=== PATIENT | female | born 1960 | race Caucasian/White ===

== ENCOUNTER → 2021-03-22 | Outpatient (CLI) | payer BC | LOC: MC.RAD 13:48 | DX: N60.12 Diffuse cystic mastopathy of left breast (principal) ==

== ENCOUNTER → 2021-04-02 | Outpatient (CLI) | payer BC | LOC: MC.RAD 09:47 | DX: N60.02 Solitary cyst of left breast (principal) ==

== ENCOUNTER 2021-10-02 07:30 | Emergency (ER) | payer BC ==
[~2021-10-02] VITALS: Ht 167.6 cm; Wt 82.7 kg
[2021-10-02 07:35] VITALS: PULSE 70; TEMP 97.5
[2021-10-02 08:10] LABS: BASO % 0.6 % (0.0-2.0); EOS # 0.4 K/mm3 (0.0-0.7); EOS % 8.7 % (0.0-4.0); GRAN # 2.5 K/mm3 (1.4-6.5); GRAN % 51.8 % (42.2-75.2); HEMATOCRIT 41.5 % (37.0-47.0); HEMOGLOBIN 13.8 g/dl (12.5-16.0); LYMPH # 1.5 K/mm3 (1.2-3.4); LYMPH % 30.2 % (20.0-51.0); MEAN CELL VOLUME 91 fl (80.0-100.0); MEAN CORPUSCULAR HEMOGLOBIN 30 pg (27-31); MEAN CORPUSCULAR HGB CONC 33 g/dl (33.0-37.0); MONO # 0.4 K/mm3 (0.1-0.6); MONO % 8.3 % (1.7-9.3); PLATELET COUNT 267 K/mm3 (130-400); RED BLOOD COUNT 4.58 M/mm3 (4.10-5.30); REDCELL DISTRIBUTION WIDTH-CV 13.1 % (11.5-14.5)
[2021-10-02 08:16] LABS: PROTHROMBIN TIME 11.5 SECONDS (9.7-12.8)
[2021-10-02 08:35] LABS: CALCIUM 9.1 mg/dL (8.4-10.2); CREATININE, serum 0.78 mg/dL (0.57-1.11)
[2021-10-02 08:52] VITALS: BP 115/80
== END 2021-10-02 08:52 | disposition home or self-care (01) ==
LOC: COL.ER 07:30
PROVIDERS: Emergency Medicine
DX: S70.12XA Contusion of left thigh, initial encounter (principal); X58.XXXA Exposure to other specified factors, initial encounter

== ENCOUNTER → 2022-07-07 | Outpatient (CLI) | payer BC | LOC: MC.RAD 10:42 | DX: Z12.31 Encounter for screening mammogram for malignant neoplasm of breast (principal) ==

== ENCOUNTER → 2023-07-29 | Outpatient (CLI) | payer BC | LOC: MC.RAD 12:39 | DX: Z12.31 Encounter for screening mammogram for malignant neoplasm of breast (principal) ==